=== PATIENT | female | born 1985 | race Caucasian/White ===

== ENCOUNTER 2020-12-26 15:39 | Emergency (ER) | payer OTHER, SELFPAY ==
--- NOTE | ~2020-12-26 | XR_ITS ---
EXAMINATION: XR chest 2V DATE: 12/26/2020 16:17 INDICATION: Chest pain. TECHNIQUE: Frontal and lateral views of the chest were obtained. COMPARISON: None. FINDINGS: A calcified right lung nodule is consistent with old granulomatous disease. No pleural effu mavis or pneumothorax. The heart size is normal. IMPRESSION: 1. No acute cardiopulmonary disease. Reviewed, dictated and finalized at location A.
[2020-12-26 15:50] VITALS: BP 151/99; PULSE 92; RESP 18; TEMP 36.5; O2SAT 100
--- NOTE | 2020-12-26 15:51 | ECG_ITS ---
Measurements Intervals [place] Rate: 89 P: 28 SD: 129 QRS: 19 QRSD: 98 T: 30 QT: 344 QTc: 419 Interpretive Statements SINUS RHYTHM INCOMPLETE RIGHT BUNDLE BRANCH BLOCK BASELINE ARTIFACT- II, III, AVF BORDERLINE ECG Electronically Signed On 12-26-2020 16:31:15 CDT by Corbin Rojo D.O.
--- NOTE | 2020-12-26 16:10 | ED.CHESTPAIN ---
HPI - Chest Pain General Chief Complaint: Chest Pain Stated Complaint: chest pain Time Seen by Provider: 12/26/20 15:41 Source: patient Mode of arrival: ambulatory Limitations: no limitations History of Present Illness HPI narrative: 35-year-old female presents to [facility] with complaints of left-sided chest pains for the past 2 weeks. Patient also reports intermittent shortness of breath and fatigue. Patient reports that she has a normal daily smoker's cough. Patient reports her cough is not worsening. Patient denies sick contacts. Patient denies recent travel. Patient has not spoke with her primary care provider concerning the symptoms. Patient not tried taking any [id number] medications for her symptoms. Patient reports that her father has numerous stents. MD complaint: chest pain Onset (ago): week(s) (2) Onset: during rest Pain location: substernal Pain radiation: none Quality: aching Relieving factors: nothing Exacerbating factors: nothing Treatment prior to arrival: none Risk Factors Coronary artery disease risk factors: smoking history Related Data On Oral Contraceptives: No Home Medications Medication Instructions Recorded Confirmed lisdexamfetamine [Vyvanse] 20 mg PO QAM 12/26/20 12/26/20 Allergies Allergy/AdvReac Type Severity Reaction Status Date / Time latex Allergy Mild Rash Verified 12/26/20 15:46 Review of Systems Constitutional: Constitutional: Denies body ache(s) and Denies chills Cardiovascular: Cardiovascular: Denies acrocyanosis, Reports chest pain, Denies diaphoresis, Denies syncope, Denies rapid heart rate, Denies pedal edema, Denies edema, Denies claudication, Denies leg ulcers, Denies lightheadedness, Denies radiating jaw, neck or arm pain, Denies dyspnea and Denies orthopnea Respiratory: Respiratory: Reports cough, Denies hemoptysis, Denies excessive phlegm production, Reports dyspnea and Denies snoring Gastrointestinal: Gastrointestinal: Denies abdominal pain, Denies bloating, Denies dyspepsia, Denies heartburn, Denies diarrhea, Denies nausea and Denies vomiting Neurologic: Denies vertigo, Denies dizziness and Denies numbness PMFSH Past Medical History Medical History (Updated 12/26/20 @ 16:37 by Safia Hopkins APRN) delivery delivered Surgical History Surgical History (Updated 12/26/20 @ 16:16 by Safia Hopkins APRN) [place] teeth extracted Family History Family History (Updated 12/26/20 @ 16:16 by Safia Hopkins APRN) Father Heart disease Social History Social History (Updated 12/26/20 @ 16:15 by Safia Hopkins APRN) Smoking status: Current every day smoker Gender identity (if verbalized by the patient): Female Comments At time of signature, I agree with nursing past medical, surgical, social and family history. There is no relevant family history pertinent to the presenting complaint. Exam Const: General: cooperative, healthy appearing, comfortable, no acute distress, well developed, alert, awake and Physically active Nutritional Appearance: average body habitus and well nourished Limitations: no limitations Neck: Neck: normal visual inspection and full ROM Chest: Chest palpation & inspection: normal inspection of the chest Resp: Effort & Inspection: normal respiratory effort, able to speak in complete sentences, no audible wheezes, no cough, respiratory effort not decreased, no grunting, not labored and no nasal flaring Auscultation: clear to auscultation bilaterally Cardio: Jugular venous distension: no JVD Palpation: normal PMI Rate: regular rate Rhythm: regular rhythm Heart sounds: no gallops, no murmurs and no rubs GI: Inspection: normal to inspection GI Palp: No abdominal tenderness, Yes Soft to palpation, No Tenderness to palpation present (GI) and No Guarding due to palpation present (GI) Skin: General skin exam: normal color and no rashes or lesions noted Wounds: no wounds Neuro: General: oriented to person, or
[2020-12-26 16:40] VITALS: BP 143/98; PULSE 91; O2SAT 99
== END 2020-12-26 16:40 | disposition left against medical advice (07) ==
PROVIDERS: Emergency Provider Nurse Practitioner Family; PCP Physician Assistant Medical
DX: R07.89 Other chest pain (principal); I45.10 Unspecified right bundle-branch block; F17.200 Nicotine dependence, unspecified, uncomplicated; F90.9 Attention-deficit hyperactivity disorder, unspecified type
CPT/HCPCS: 71046; 93005; 99213; G0463

== ENCOUNTER 2021-06-10 15:14 | Emergency (ER) | payer OTHER, SELFPAY ==
[2021-06-10 15:30] VITALS: BP 150/89; PULSE 90; RESP 18; TEMP 37.1; O2SAT 99
--- NOTE | 2021-06-10 15:53 | ED.WOUNDLAC ---
HPI - Wound/Laceration General Chief Complaint: Wound/Laceration Stated Complaint: Hit back of head due to fall Source: patient Mode of arrival: ambulatory Limitations: no limitations History of Present Illness HPI narrative: Patient is a 36-year-old female who presents complaining of fall approximately 3 days ago. Patient reports slipping and tripping on steps, hitting head on bookshelf. She denies other injuries. Patient has 3 small healing lacerations to posterior scalp. She denies dizziness prior to fall. She denies LOC. Patient has no significant medical history. Patient denies taking [id number]-[id number] medications for injury. Patient reports tetanus is updated. Related Data Home Medications Medication Instructions Recorded Confirmed lisdexamfetamine [Vyvanse] 20 mg PO QAM 12/26/20 12/26/20 Allergies Allergy/AdvReac Type Severity Reaction Status Date / Time latex Allergy Mild Rash Verified 06/10/21 16:01 Review of Systems Review of Systems: CONSTITUTIONAL: Denies fever, chills, or sweats. EYES: Denies visual changes, redness, or discharge. ENT: Denies rhinorrhea, congestion, sore throat, or otalgia. CARDIOVASCULAR: Denies chest pain, palpitations, or edema. RESPIRATORY: Denies cough or dyspnea. GASTROINTESTINAL: Denies abdominal pain, nausea, vomiting, or diarrhea. GENITOURINARY: Denies dysuria or hematuria. SKIN: Reports cuts the head MUSCULOSKELETAL: Denies back pain, joint pain, or myalgia. NEUROLOGIC: Reports headache, denies numbness, dizziness, or weakness. PSYCHIATRIC: Denies anxiety or depression. [facility] Past Medical History Medical History delivery delivered Surgical History Surgical History [place] teeth extracted Family History Family History Father Heart disease Social History Social History (Updated 06/10/21 @ 15:55 by EFRAÍN Lau) Smoking status: Current every day smoker Alcohol intake: current Alcohol use details: Occasional Substance use: never Living arrangements: with family Occupation/Education: occupation Gender identity (if verbalized by the patient): Female Comments At the time of signature, I have reviewed and agree with nursing past medical, surgical, social, and family history unless otherwise noted. Please see nursing chart for further information. There is no relevant family history pertinent to the presenting complaint. Exam Narrative: GENERAL: Well-appearing, well-nourished, and in no acute distress. HEAD: Normocephalic, atraumatic. EYES: EOMI. No redness or drainage. Conjunctiva are normal. PERRLA ENT: Mucous membranes pink and moist. Nares clear. No rhinorrhea. TMs normal bilaterally. Throat normal. Uvula midline. NECK: AROM. Supple. No lymphadenopathy. CHEST: No respiratory distress. HEART: Regular rate and rhythm. MUSCULOSKELETAL: No bony tenderness. EXTREMITIES: Normal range of motion. No edema. SKIN: 3 small healing lacerations to posterior scalp, tenderness with palpation, surrounding hematoma NEURO: No focal deficits. Alert and oriented x3. Gait steady. PSYCH: Normal affect. No signs of depression or anxiety. Course Vital Signs Vital signs: Vital Signs Temperature 37.1 C 06/10/21 15:30 Pulse Rate 90 06/10/21 15:30 Respiratory Rate 18 06/10/21 15:30 Blood Pressure 150/89 H 06/10/21 15:30 Pulse Oximetry 99 06/10/21 15:30 Temperature 37.1 C 06/10/21 15:30 Pulse Rate 90 06/10/21 15:30 Respiratory Rate 18 06/10/21 15:30 Blood Pressure 150/89 H 06/10/21 15:30 Pulse Oximetry 99 06/10/21 15:30 Reviewed-patient is informed that they may have pre-hypertension or hypertension based on a blood pressure reading. I recommend the patient call the primary care provider listed on their discharge instructions or a physici
== END 2021-06-10 16:06 | disposition home or self-care (01) ==
PROVIDERS: Emergency Provider Nurse Practitioner; PCP Physician Assistant Medical
DX: S01.01XA Laceration without foreign body of scalp, initial encounter (principal); W10.9XXA Fall (on) (from) unspecified stairs and steps, initial encounter; M54.50 Low back pain, unspecified; R51.9 Headache, unspecified; F17.210 Nicotine dependence, cigarettes, uncomplicated; F90.9 Attention-deficit hyperactivity disorder, unspecified type
CPT/HCPCS: 99213; G0463

== ENCOUNTER 2022-11-13 06:12 | Emergency (ER) | payer OTHER, SELFPAY ==
[2022-11-13] VITALS (10 sets, daily range): BP systolic 132–137; BP diastolic 91–102; PULSE 88–99; RESP 11–33; O2SAT 98–100
--- NOTE | ~2022-11-13 | XR_ITS ---
EXAMINATION: XR chest 2V 11/13/2022 07:00 INDICATION: Chest pressure. Chronic cough. PROCEDURE: 2 view chest COMPARISON: 12/26/2020 FINDINGS: The lungs are clear. The cardiomediastinal silhouette is within normal limits. There are no pleural effusions. There is no pneumothorax suspected. Calcified granuloma right mid thorax. IMPRESSION: 1: NO ACUTE CARDIOPULMONARY DISEASE. Reviewed, dictated and finalized at location A.
--- NOTE | 2022-11-13 06:16 | ECG_ITS ---
Measurements Intervals [place] Rate: 92 P: 60 UT: 142 QRS: 42 QRSD: 93 T: 33 QT: 354 QTc: 438 Interpretive Statements SINUS RHYTHM POSSIBLE LEFT ATRIAL ENLARGEMENT [-0.1mV P WAVE IN V1/V2] INCOMPLETE RIGHT BUNDLE BRANCH BLOCK [90+ ms QRS DURATION, TERMINAL R IN V1/V2, 40+ ms S IN I/aVL/V4/V5/V6] BORDERLINE ECG COMPARED TO ECG 12/26/2020 15:59:20 NO SIGNIFICANT CHANGES Electronically Signed On 11-13-2022 7:24:19 CDT by Richard Bridges M.D.
[2022-11-13 06:47] LABS: Appearance Urine Clear (Clear); Bacteria Urine 4+ /hpf; Bilirubin Urine Negative (Negative); Blood Urine Negative (Negative); Color Urine Yellow (Yellow); Glucose Urine UA Negative (Negative); Ketones Urine Negative (Negative); Leukocyte Esterase Ur 2+ LEU/UL (Negative); Nitrate Urine Positive (Negative); Non Pathogenic Casts 0-2; Protein Urine Negative (Negative); RBC Urine 0-2 /hpf (0-2); Specific Grav Ur 1.014 (1.001-1.035); Squamous Epithelial Cell Urine Occasional /hpf (Few); pH Urine 6.5 (5.0-9.0)
--- NOTE | 2022-11-13 06:48 | ED.CHESTPAIN ---
HPI - Chest Pain General Chief Complaint: Chest Pain <Chelsea Ornelas MD - Last Filed: 11/13/22 20:51> Stated Complaint: chest pain <Chelsea Ornelas MD - Last Filed: 11/13/22 20:51> Time Seen by Provider: 11/13/22 06:29 <Chelsea Ornelas MD - Last Filed: 11/13/22 20:51> History of Present Illness HPI narrative: Patient is a 37-year-old female presenting with chest pain. Patient states that she has had intermittent but persistent chest pressure for the last several months. States that it feels like it is difficult to take a big breath. She was told at some point that she has a blockage . States that she has been avoiding the hospital since being told this. States that the pain has been unchanged. She denies lightheadedness. No headaches, fevers, abdominal pain, nausea or vomiting, diarrhea, leg swelling. Patient reports a chronic cough. <Chelsea Ornelas MD - Last Filed: 11/13/22 20:51> Related Data Allergies/Adverse Reactions: Allergies Allergy/AdvReac Type Severity Reaction Status Date / Time latex Allergy Mild Rash Verified 11/13/22 06:27 amphetamine AdvReac Severe suicidal Verified 11/13/22 06:27 [From Adderall XR] dextroamphetamine AdvReac Severe suicidal Verified 11/13/22 06:27 [From Adderall XR] <Chelsea Ornelas MD - Last Filed: 11/13/22 20:51> Review of Systems Review of Systems: All systems reviewed & are unremarkable except as noted in HPI and below <Chelsea Ornelas MD - Last Filed: 11/13/22 20:51> PMFSH Past Medical History Medical History: Medical History delivery delivered Gout Recurrent UTI 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, had surgery to glue one end and is prone to getting infections now <Chelsea Ornelas MD - Last Filed: 11/13/22 20:51> Surgical History Surgical History: Surgical History [place] teeth extracted <Chelsea Ornelas MD - Last Filed: 11/13/22 20:51> Family History Family History: Family History Father Heart disease Hypertension Alcohol abuse <Chelsea Ornelas MD - Last Filed: 11/13/22 20:51> Social History Social History: Social History Smoking packs per day: 1 Smoking cigarettes per day: 20.0 Smoking status: Current every day smoker Tobacco type: cigarettes Second hand tobacco smoke exposure: No Alcohol intake: current Alcohol use details: Occasional Substance use: never Substance use type: does not use Living arrangements: with family Occupation/Education: occupation Gender identity (if verbalized by the patient): Female Sexual Orientation (if Verbalized by the Patient): Straight or Heterosexual <Chelsea Ornelas MD - Last Filed: 11/13/22 20:51> Exam Narrative: GENERAL: Well-appearing, well-nourished, and in no acute distress. HEAD: Normocephalic, atraumatic. EYES: PERRLA and EOMI. ENT: Nares clear, no rhinorrhea or epistaxis. Mucous membranes moist. NECK: Supple. CHEST: Clear to auscultation. No respiratory distress. HEART: Regular rate and rhythm. No murmur heard. Normal peripheral pulses. ABDOMEN: Soft, nontender, nondistended EXTREMITIES: Normal range of motion. No edema. SKIN: Warm, dry, no rash. NEURO: No focal deficits. Alert and oriented x3. PSYCH: Normal mood and affect. <Chelsea Ornelas MD - Last Filed: 11/13/22 20:51> Course Vital Signs Vital signs: Vital Signs Pulse Rate 97 11/13/22 06:19 Respiratory Rate 21 H 11/13/22 06:19 Pulse Oximetry 99 11/13/22 06:19 Pulse Rate 90 11/13/22 07:45 Respiratory Rate 22 H 11/13/22 07:45 Blood Pressure 137/102 H 11/13/22 06:46 Pulse Oximetry 100 11/13/22 07:45 Oxygen De
[2022-11-13] MEDS: SODIUM CHLORIDE 0.9% IV 1,000 ML 999 ML IV CONT (06:58)
[2022-11-13 07:08] LABS: Basophils Percent Auto 0.5 % (0.2-1.2); Eosinophils Absolute Auto 0.1 K/mm3 (0-0.3); Eosinophils Percent Auto 1.2 % (0-4.4); Hematocrit 41.8 % (37.0-47.0); Immature Granulocyte Absolute 0.02 K/mm3 (0.00-0.031); Immature Granulocyte Percent A 0.3 % (0-0.5); Lymphocytes Absolute Auto 2.64 K/mm3 (0.9-3.2); Mean Corpuscular HGB Conc 33.5 g/dl (32-36); Mean Corpuscular Hemoglobin 30.8 pg (26-34); Mean Corpuscular Volume 92.1 fl (80-100); Mean Platelet Volume 10.5 fl (7.4-10.4); Monocytes Absolute Auto 0.8 K/mm3 (0.1-0.6); Neutrophils Absolute Auto 4.2 K/mm3 (1.3-6.7); Platelet Count Result 260 k/mm3 (150-375); Red Blood Count 4.54 M/mm3 (4.2-5.4); Red Cell Distribution Width 12.2 % (11.5-14.5); White Blood Count 7.8 K/mm3 (4.5-10.0)
--- NOTE | 2022-11-13 07:08 | PC.NURSE ---
Patient report received from FEDE Youssef. All questions answered and care of patient assumed.m
[2022-11-13 07:21] LABS: Alanine Aminotransferase 18 U/L (6-35); Albumin Level 4.5 g/dL (3.5-5.1); Alkaline Phosphatase 66 U/L (38-126); Anion Gap 11 mmol/L (8-16); Aspartate Amino Transferase 22 U/L (14-36); Bilirubin,Total 0.6 mg/dL (0.2-1.3); Blood Urea Nitrogen 11 mg/dL (7-17); Calcium 8.2 mg/dL (8.4-10.2); Carbon Dioxide 25 mmol/L (22-30); Chloride 107 mmol/L (98-107); Estimated CRCL calculation 89 ml/min; Estimated Glomerular Filt Rate > 60; Glucose 105 mg/dL (65-110); Sodium 143 mmol/L (137-145)
[2022-11-13 07:22] LABS: Add Urine Microscopic? YES
[2022-11-13 07:27] LABS: Prothrombin Time 12.8 Seconds (11.1-14.7)
[2022-11-13 07:28] LABS: Partial Thromboplastin Time 27.3 SECONDS (22.3-36.8)
[2022-11-13 07:32] LABS: Troponin I < 0.012 ng/mL (0.000-0.034)
[2022-11-13] MEDS: CEPHALEXIN 500 MG CAPSULE PO (08:04)
--- NOTE | 2022-12-03 11:26 | PC.NURSE ---
LATE ENTRY This note is being entered to document information to the patient's record. The following information was omitted on [11/13/22], by [Domonique MISTRY]. Iv stop time is 0755am. Infused
== END 2022-11-13 08:11 | disposition home or self-care (01) ==
PROVIDERS: Emergency Medicine; Emergency Provider Emergency Medicine; PCP Physician Assistant Medical
DX: R07.89 Other chest pain (principal); M10.9 Gout, unspecified; F17.210 Nicotine dependence, cigarettes, uncomplicated; Z87.440 Personal history of urinary (tract) infections
CPT/HCPCS: 36415; 71046; 80053; 81001; 81025; 84484; 85025; 85380; 85610; 85730; 87077; 87086; 87186; 93005; 96360; 99284; A9270; J7030